=== PATIENT | female | born 2005 | race Hispanic/Latino ===

== ENCOUNTER 2024-10-02 22:43 | Day surgery (SDC) | payer MEDICAID, SELFPAY ==
[2024-10-02 22:56] VITALS: BMI 29.6
[2024-10-03] MEDS ORDERED: hydrALAZINE 20 MG/ML VIAL SLOW IVP PRN (01:13)
[2024-10-03 01:59] LABS: Fetal Membranes Rupture No Membranes Rupture (No Rupture)
[2024-10-04 02:54] LABS: Chlamydia by PCR, Vaginal Swab Not Detected (NotDetected); GC by PCR, Vaginal Swab Not Detected (NotDetected)
== END 2024-10-03 04:00 | disposition home or self-care (01) ==
LOC: CSHLD/OP 22:43
PROVIDERS: ATTEND Obstetrics & Gynecology
DX: O47.1 False labor at or after 37 completed weeks of gestation (principal); Z03.71 Encounter for suspected problem with amniotic cavity and membrane ruled out; Z3A.40 40 weeks gestation of pregnancy; Z79.899 Other long term (current) drug therapy
CPT/HCPCS: 84112; 87480; 87491; 87510; 87591; 87660